=== PATIENT | female | born 1995 | race Caucasian/White ===

== ENCOUNTER → 2021-09-26 | Outpatient (CLI) | payer MEDICAID ==
--- NOTE | 2021-09-26 16:51 | RAD ---
EXAM: OB ULTRASOUND, > 14 WEEKS HISTORY: Normal . COMPARISON: None. TECHNIQUE: Multiple grayscale images, color Doppler, and M-mode images of the uterus are obtained. FINDINGS: The uterus measures 11.2 x 7.7 x 7.1 cm. There is a single intrauterine gestational sac wit h yolk sac and pole. The crown-rump length is 3.03 cm, corresponding with a gestational a ge of 9 weeks and 6 days and due date of 04/25/2022. The gestational sac is normal in configuration an d location. The heart rate is normal at 165 bpm. The maternal ovaries are normal in size and de monstrate normal blood flow. There are bilateral ovarian follicles measuring 1.9 cm and 1.8 cm. IMPRESSION: Single intrauterine fetus with normal heart rate and gestational age based on ultrasound measurements of 9 weeks and 6 days. Electronically signed by: Gilma Hodgson MD (09/26/2021 4:48 PM) [id number]
== END ==
LOC: US 15:47
PROVIDERS: ATTEND Family Medicine
DX: O36.5910 Maternal care for other known or suspected poor fetal growth, first trimester, not applicable or unspecified (principal); Z3A.09 9 weeks gestation of pregnancy
CPT/HCPCS: 76801

== ENCOUNTER → 2021-12-01 | Outpatient (CLI) | payer MEDICAID ==
--- NOTE | 2021-12-02 15:27 | RAD ---
US OB >14 WEEKS History: Reason: SMALL FOR DATES / Spl. Instructions: / History: Comparison: September 26, 2021 Technique: Multiple grayscale images, color Doppler, and M-mode images of the uterus are obtained. Findings: There is a single intrauterine gestation in breech presentation. The placenta is posterior in locatio n without evidence of placenta previa. The amount of amniotic fluid appears appropriate. Amniotic fl uid index within normal limits Cervical length is 6.2 cm. Biometrical data: BPD = 4.3 cm for 19 weeks 0 days. HC = 16.61 cm for 19 weeks 2 days. AC = 13.73 cm for 19 weeks 1 days. FL = 3.08 cm for 19 weeks 4 days. HC/AC ratio = 1.21. Overall, the estimated sonographic gestational age is 19 weeks 2 days for an estimated date of delive ry of April 25, 2022. The estimated date of delivery provided by the last menstrual period is April 24, 2022. Estimated weight is 286 grams. A 4 chamber heart is identified with positive cardiac activity. The estimated heart rate is 144 beats per minute. Bilateral upper and lower extremities are identified. There is a three-vessel cord with cord insertion visualized. stomach and urinary bladder are identified. Both kidneys are seen. The spine and brain are unremarkable. No gross anatomic abnormalities are identified. Impression: 1. Single intrauterine gestation with estimated gestational age 19 weeks 2 days with heart 144 bpm. Electronically signed by: Titi Shahid DO (12/02/2021 3:24 PM) [id number]
== END ==
LOC: US 09:39
PROVIDERS: ATTEND Family Medicine
DX: O32.1XX0 Maternal care for breech presentation, not applicable or unspecified (principal); Z3A.19 19 weeks gestation of pregnancy
CPT/HCPCS: 76805